=== PATIENT | female | born 1955 | race Caucasian/White ===

== ENCOUNTER 2017-05-19 11:47 | Day surgery (SDC) | payer BC ==
[~2017-05-19] VITALS: Ht 195.6 cm; Wt 76.8 kg
[~2017-05-19 11:47] MED LIST: ASCO500 PO; ASPI81CH PO; ASPI81EC PO; ATORVASTATIN CA40 MG PO; Ambien5 MG PO; CALCAVITD PO; COLC.6 PO; CRUTCH2 USE; CYCL10 PO; DESL5 PO; DULO60; Diclofenac Pota50 MG PO; ERGO400 PO; ESTR2 PO; Estrace Vagin42.5 GM VAG; FISH OIL 1,2001 EACH PO; FLAX SEED OIL1 EACH PO; FLUC150A PO; FLUO20 PO; Finacea50 GM; HYDACE5325 PO; HYDCHL12.5 PO; L-Lysine500 M1 PO; LISI20 PO; LISI5 PO; LORA.5 PO; MULVITB&C PO; Multiple Vitam1 EAC1 PO; NYST100P TOP; Nyamyc15 GM; OMEP20ER PO; POLY500 PO; PRAV20 PO; PROBIOTIC1 EAC3 PO; Pravachol PO; Pravachol40 MG PO; Prozac20 MG PO; RXHYD5325 PO; TEMA30 PO; TRAZ50 PO; VENL150ER PO; VERAMYST; VIBERZI100 MG PO; ZALE10 PO; Zestril PO
== END 2017-05-19 16:24 | disposition home or self-care (01) ==
LOC: ORSCSDS 11:47
PROVIDERS: Podiatrist Foot & Ankle Surgery
PROC: 0QSQ04Z Reposition Right Toe Phalanx with Internal Fixation Device, Open Approach (ICD-10-PCS; principal; 2017-05-19 13:15)
PROC: 0QBN0ZZ Excision of Right Metatarsal, Open Approach (ICD-10-PCS; principal; 2017-05-19 13:15)
DX: M20.11 Hallux valgus (acquired), right foot (principal); I10 Essential (primary) hypertension; E78.5 Hyperlipidemia, unspecified; J44.9 Chronic obstructive pulmonary disease, unspecified; K21.9 Gastro-esophageal reflux disease without esophagitis; Z79.899 Other long term (current) drug therapy; Z87.891 Personal history of nicotine dependence
CPT/HCPCS: C1713; J0171; J0690; J1100; J2405; J3010; J7120

== ENCOUNTER → 2017-05-31 | Outpatient (CLI) | payer BC | LOC: LAB EV 12:13 → LAB SHORT 12:13 | DX: N39.0 Urinary tract infection, site not specified (principal) | CPT/HCPCS: 87077; 87086; 87186 ==

== ENCOUNTER → 2019-05-12 | Outpatient (CLI) | payer MEDICARE, OTHER ==
[2019-05-13 13:51] LABS: Adenovirus F 40/41 Not Detected (NOT DETECT); Astrovirus Not Detected (NOT DETECT); Campylobacter Sp Not Detected (NOT DETECT); Cryptosporidium Not Detected (NOT DETECT); Cyclospora Cayetanensis Not Detected (NOT DETECT); E. Coli O157 Not Detected (NOT DETECT); Entamoeba Histolytica Not Detected (NOT DETECT); Enteroaggregative E. coli-EAEC Not Detected (NOT DETECT); Enteropathogenic E. coli-EPEC Not Detected (NOT DETECT); Enterotoxigenic E. coli-ETEC Not Detected (NOT DETECT); Giardia Lamblia Not Detected (NOT DETECT); Norovirus GI/GII Not Detected (NOT DETECT); Plesiomonas Shigelloides Not Detected (NOT DETECT); Rotavirus A Not Detected (NOT DETECT); Salmonella Sp Not Detected (NOT DETECT); Sapovirus Not Detected (NOT DETECT); Shiga Toxin-prod E. coli-STEC Not Detected (NOT DETECT); Shigella/Enteroin E. coli-EIEC Not Detected (NOT DETECT); Vibrio Cholerae Not Detected (NOT DETECT); Vibrio Sp Not Detected (NOT DETECT); Yersinia Enterocolitica Not Detected (NOT DETECT)
== END | disposition home or self-care (01) ==
LOC: LAB EV 16:00
PROVIDERS: Internal Medicine
DX: R19.7 Diarrhea, unspecified (principal)
CPT/HCPCS: 0097U

== ENCOUNTER → 2019-09-05 | Outpatient (CLI) | payer MEDICARE, OTHER | END | disposition home or self-care (01) | LOC: LAB SHORT 12:28 → LAB EV 12:28 | DX: N39.0 Urinary tract infection, site not specified (principal) | CPT/HCPCS: 87077; 87086; 87186 ==

== ENCOUNTER → 2021-06-05 | Outpatient (CLI) | payer MEDICARE, OTHER ==
[~2021-06-05] MED LIST changes: +PROP10; +TRIA50
== END | disposition home or self-care (01) ==
LOC: LAB 11:08 → LAB SHORT 11:08
DX: H04.321 Acute dacryocystitis of right lacrimal passage (principal)
CPT/HCPCS: 87070; 87077; 87147; 87186; 87205

== ENCOUNTER → 2022-02-14 | Outpatient (CLI) | payer MEDICARE, OTHER ==
[~2022-02-14] MED LIST changes: +AMLO5 PO; +AMOCLA875 PO; +DIVA500EC PO; +FAMO20; +IRBESARTAN-HCT1 EAC3 PO; +LORA1 PO; +METF500 PO; +POTCHL20ER PO; -PROP10; +PROP10 PO; +TIZA4 PO
[2022-02-15 17:36] LABS: Adenovirus F 40/41 Not Detected (NOT DETECT); Astrovirus Not Detected (NOT DETECT); Campylobacter Sp Not Detected (NOT DETECT); Cryptosporidium Not Detected (NOT DETECT); Cyclospora Cayetanensis Not Detected (NOT DETECT); E. Coli O157 Not Detected (NOT DETECT); Entamoeba Histolytica Not Detected (NOT DETECT); Enteroaggregative E. coli-EAEC Not Detected (NOT DETECT); Enteropathogenic E. coli-EPEC Not Detected (NOT DETECT); Enterotoxigenic E. coli-ETEC Not Detected (NOT DETECT); Giardia Lamblia Not Detected (NOT DETECT); Norovirus GI/GII Not Detected (NOT DETECT); Plesiomonas Shigelloides Not Detected (NOT DETECT); Rotavirus A Not Detected (NOT DETECT); Salmonella Sp Not Detected (NOT DETECT); Sapovirus Not Detected (NOT DETECT); Shiga Toxin-prod E. coli-STEC Not Detected (NOT DETECT); Shigella/Enteroin E. coli-EIEC Not Detected (NOT DETECT); Vibrio Cholerae Not Detected (NOT DETECT); Vibrio Sp Not Detected (NOT DETECT); Yersinia Enterocolitica Not Detected (NOT DETECT)
[2022-02-16 12:44] LABS: Stool Occult Bld Immuno 1 Positive (NEGATIVE)
== END | disposition home or self-care (01) ==
LOC: LAB 02:15 → LAB SHORT 02:15
PROVIDERS: Family Medicine
DX: K58.0 Irritable bowel syndrome with diarrhea (principal)
CPT/HCPCS: 82274; 87507

== ENCOUNTER 2022-02-19 14:00 | Emergency (ER) | payer MEDICARE, OTHER ==
[~2022-02-19] VITALS: Ht 165.1 cm; Wt 76.7 kg
[~2022-02-19 14:00] MED LIST changes: -AMLO5 PO; -DIVA500EC PO; -IRBESARTAN-HCT1 EAC3 PO; -LORA1 PO; -METF500 PO; -POTCHL20ER PO; -TIZA4 PO
[2022-02-19] MEDS ORDERED: POTCHL20ER PO (14:56)
[2022-02-19] MEDS ORDERED: AMLO5 PO (14:57)
[2022-02-19] MEDS ORDERED: LORA1 PO (14:57)
[2022-02-19] MEDS ORDERED: IRBESARTAN-HCT1 EAC3 PO (14:58)
[2022-02-19] MEDS ORDERED: TIZA4 PO (15:00)
[2022-02-19] MEDS ORDERED: METF500 PO (15:00)
[2022-02-19] MEDS ORDERED: DIVA500EC PO (15:01)
[2022-02-19 15:07] LABS: BASOPHILS ABSOLUTE AUTO 0.05 K/mm3 (0.00-0.23); BASOPHILS PERCENT AUTO 1 % (0-2); EOSINOPHILS ABSOLUTE AUTO 0.17 K/mm3 (0.00-0.68); EOSINOPHILS PERCENT AUTO 2 % (0-6); Hematocrit 36.9 % (33.0-51.0); Hemoglobin 12.8 g/dL (11.5-16.0); IMMATURE GRAN ABSOLUTE AUTO 0.03 K/mm3 (0.00-0.10); IMMATURE GRAN PERCENT AUTO 0 % (0-1); LYMPHOCYTES ABSOLUTE AUTO 1.74 K/mm3 (0.84-5.20); LYMPHOCYTES PERCENT AUTO 19 % (21-46); MONOCYTES ABSOLUTE AUTO 0.91 K/mm3 (0.16-1.47); MONOCYTES PERCENT AUTO 10 % (4-13); Mean Corpuscular HGB 32.3 pg (26.0-34.0); Mean Corpuscular HGB Conc 34.7 g/dL (31.5-36.5); Mean Corpuscular Volume 93 fL (80-100); Mean Platelet Volume 9.9 fL (9.1-12.4); NEUTROPHILS ABSOLUTE AUTO 6.13 K/mm3 (1.96-9.15); NEUTROPHILS PERCENT AUTO 68 % (41-73); Platelet Count 211 K/mm3 (150-400); RDW Coefficient Variation 12.7 % (11.7-14.2); RDW Standard Deviation 43.5 fL (35.1-46.3); Red Blood Cell Count 3.96 M/mm3 (3.80-5.20); White Blood Cell Count 9.03 K/mm3 (4.00-11.30)
[2022-02-19 15:29] LABS: International Normalized Ratio 1.07; Prothrombin Time Results 11.2 Sec (9.7-11.5)
[2022-02-19 15:48] LABS: Albumin, Blood 3.3 g/dL (3.4-5.0); Albumin/Globulin Ratio 0.9 (0.8-1.8); Bilirubin, Total 0.4 mg/dL (0.1-1.0); Bun/Creatinine Ratio 15.8 (12.0-20.0); Calcium, Blood 9.2 mg/dL (8.5-10.1); Creatinine, Blood 1.14 mg/dL (0.40-1.00); Globulin, Blood 3.5 g/dL (2.2-4.0); Potassium, Blood 3.9 mmol/L (3.5-5.5); Total Protein, Blood 6.8 g/dL (6.4-8.2)
== END 2022-02-19 17:08 | disposition home or self-care (01) ==
LOC: ER 14:00
PROVIDERS: Emergency Medicine
DX: R19.7 Diarrhea, unspecified (principal); K92.2 Gastrointestinal hemorrhage, unspecified; E86.0 Dehydration; I10 Essential (primary) hypertension; Z87.891 Personal history of nicotine dependence
CPT/HCPCS: 36415; 74177; 80053; 85025; 85610; 86850; 86900; 86901; J7030; Q9967

== ENCOUNTER → 2022-07-26 | Outpatient (CLI) | payer OTHER ==
[~2022-07-26] MED LIST changes: +AMLO5 PO; +DIVA500EC PO; +IRBESARTAN-HCT1 EAC3 PO; +LORA1 PO; +METF500 PO; +POTCHL20ER PO; +TIZA4 PO
== END | disposition home or self-care (01) ==
LOC: LAB 14:59 → LAB SHORT 14:59
DX: N39.0 Urinary tract infection, site not specified (principal)
CPT/HCPCS: 87086

== ENCOUNTER → 2023-11-11 | Outpatient (CLI) | payer OTHER | LOC: LAB SHORT 14:03 → LAB 14:03 | DX: N39.0 Urinary tract infection, site not specified (principal) | CPT/HCPCS: 87086 ==

== ENCOUNTER → 2023-12-13 | Outpatient (CLI) | payer OTHER | END | disposition home or self-care (01) | LOC: LAB SHORT 14:36 → LAB 14:36 | DX: N39.0 Urinary tract infection, site not specified (principal) | CPT/HCPCS: 87086 ==

== ENCOUNTER → 2023-12-28 | Outpatient (CLI) | payer OTHER | LOC: LAB 13:51 → LAB SHORT 13:51 | DX: N39.0 Urinary tract infection, site not specified (principal) | CPT/HCPCS: 87086 ==